=== PATIENT | male | born 1990 | race Two or more races ===

== ENCOUNTER 2020-03-11 05:46 | Emergency (ER) | payer SELFPAY ==
[2020-03-11 06:01] VITALS: BP 121/68; PULSE 81; TEMP 98.3; BMI 23.4
--- NOTE | 2020-03-11 06:10 | PDOC ---
History of Present Illness - General History Source: Patient Exam Limitations: No Limitations - History of Present Illness Initial Comments: 30 y/o male presenting to [facility] ER complaining of a painless rash on the shaft of his penis for the past week and a half. Became concerned when his risa mother (not current sexual partner) suggested he could have herpes. Denies bleeding or discharge from the area. Denies penile discharge, shaft pain, testicular pain, lower abdominal pain, dysuria, hematuria, fevers, or chills. Sexual Hx: - Two female lifetime sexual partners - No known STI exposure - No personal STI history <CoxZan - Last Filed: 03/11/20 06:27> <Erica Terrazas - Last Filed: 03/11/20 22:32> - General Chief Complaint: Penile Drainage Stated Complaint: STD CHECK Time Seen by Provider: 03/11/20 06:08 Past History - Medical History Psychiatric Problems: Yes (Schizophrenia, Bipolar, Depression) - Surgical History Abdominal Surgery: No - Psycho-Social/Smoking History Smoking History: Unknown if ever smoked - Substance Abuse Hx (Audit-C & DAST Scrn) How often the patient has a drink containing alcohol: Never Score: In Men: 4 or > Positive; In Women: 3 or > Positive: 0 Screen Result (Pos requires Nsg. Audit-10AR): Negative In the last yr the pt used illegal drug/Rx for NonMed reason: No Score: Yes response is considered Positive: 0 Screen Result (Positive result requires Nsg. DAST-10): Negative <BishopZan - Last Filed: 03/11/20 06:27> Review of Systems - Review of Systems Able to Perform ROS?: Yes Comments:: 10 point review of systems completed. All systems negative except as noted above. <BishopZan - Last Filed: 03/11/20 06:27> *Physical Exam - Vital Signs Last Vital Signs Temp Pulse Resp BP Pulse Ox 98.3 F 81 20 121/68 98 03/11/20 05:56 03/11/20 05:56 03/11/20 05:56 03/11/20 05:56 03/11/20 05:56 - Physical Exam General Appearance: Yes: Appropriately Dressed. No: Apparent Distress HEENT: positive: Normal Voice Neck: positive: Trachea midline, Supple Respiratory/Chest: positive: Other (Speaking in multi-word responses without pausing.). negative: Respiratory Distress Cardiovascular: positive: Regular Rate Gastrointestinal/Abdominal: positive: Soft. negative: Tender Male Genitalia: positive: other (Circumcised penis. Papular eruption (>15 lesions) to right base of shaft and pubic area. Nontender to palpation. No bleeding or discharge.). negative: discharge, testicular tenderness, testicular mass Musculoskeletal: positive: Normal Inspection Integumentary: positive: Dry, Warm Neurologic: positive: Fully Oriented, Alert <Zan Cox - Last Filed: 03/11/20 06:27> - Vital Signs Last Vital Signs Temp Pulse Resp BP Pulse Ox 98.3 F 81 20 121/68 98 03/11/20 05:56 03/11/20 05:56 03/11/20 05:56 03/11/20 05:56 03/11/20 05:56 <Erica Terrazas - Last Filed: 03/11/20 22:32> Medical Decision Making - Medical Decision Making 30 y/o male with nontender papular eruption to penile shaft. Suspect likely Condyloma acuminata vs molluscum. Lower suspicion for herpes simplex vs Syphilis chancre. Pt verbally consented to STI screening, including HIV. Pt discharged with [facility] referral. Results pending at time of discharge. Confirmed contact telephone number. Call back request placed in [facility]. Case discussed with ED Attending Dr. Terrazas. Zan Cox M.D., PGY3 Emergency Medicine Residency <Zan Cox - Last Filed: 03/11/20 06:27> Discharge - Discharge Information Problems reviewed: Yes - Admission No <Zan Cox - Last Filed: 03/11/20 06:27> <Erica Terrazas - Last Filed: 03/11/20 22:32> - Discharge Information Clinical Impression/Diagnosis: STD exposure, Penile eruption Condition: Good Disposition: HOME - Follow up/Referral Referrals: [facility], [facility] [Other] CallBack Reminder: STI Results - Patient Discharge Instructions Patient Printed Discharge Instructions: How to Detect and Treat STDs Additional Instructions: You were seen today for a rash on your penis. STI screening labs were sent. They will take a few days to result. The hospital will call you if they are positive. You can also check your online profile or call medical records for the results. Until the tests are negative, you need to stop having sex. You need to follow up with your primary care doctor or a clinic, such as [facility] for further guidance. Return to the ED for new or worsening symptoms. Print Language: BENGALI - Post Discharge Activity Work/Back to School Note: Back to Work
--- NOTE | 2020-03-11 06:22 | PDOC ---
Attending Attestation - Resident Resident Name: Zan Cox - ED Attending Attestation I have performed the following: I have examined & evaluated the patient, The case was reviewed & discussed with the resident, I agree w/resident's findings & plan, Exceptions are as noted - HPI HPI: 03/11/20 06:16 30 yo M p/w request for STD testing after seeing lesions on his penis for the past week. Denies any pain at the site. Denies urethral discharge or testicular pain. Sexually active with 2 female partners, inconsistent condom use. Denies abdominal pain. No other complaints. - Physicial Exam PE: 03/11/20 06:18 General: well appearing Genital: no urethral discharge, +clusters of papules on shaft of penis with ?ulceration in the center without ttp or active drainage or significant erythema - Medical Decision Making 03/11/20 06:19 30 yo M with possible HPV/genital warts. Lesions are not painful and patient denies ever appearing vesicular in nature so less likely herpes. Also possible syphilis however lesions do not appear as characteristic of syphilis as compared to HPV. Plan: -HI, RPR, GC/Chlamydia sent -counseled on safe sex practices -d/c with return precautions, instrcuted to refrain from sexual activity until tests have resulted, recommend PMD f/u This clinical encounter is taking place during a federal and state health care emergency attributable to the novel Stokes Virus pandemic. The [employer] of the Department of Health and Human Services has declared, pursuant to the Public Health Service Act 319F-3 (42 U.S.C. 247d-6d), that a covered persons activities related to medical countermeasures against COVID-19 will be immune from liability under Federal and State law. Discharge - Discharge Information Problems reviewed: Yes Clinical Impression/Diagnosis: STD exposure - Follow up/Referral - Patient Discharge Instructions - Post Discharge Activity
== END 2020-03-11 07:03 | disposition home or self-care (01) ==
LOC: JER 05:46
DX: N48.89 Other specified disorders of penis (principal); Z20.2 Contact with and (suspected) exposure to infections with a predominantly sexual mode of transmission
CPT/HCPCS: 36415; 86780; 87389; 87491; 87591; 99283-25